=== PATIENT | female | born 1990 | race African-American/Black ===

== ENCOUNTER 2017-11-20 19:00 | Emergency (ER) | payer MEDICAID ==
[~2017-11-20] VITALS: Ht 160 cm; Wt 54.4 kg
[~2017-11-20 19:00] MED LIST: IBUPROFEN600 MG ORAL; NORCO 5-325 TA1 EACH ORAL
--- NOTE | 2017-11-20 19:49 | Emergency Room Report ---
History of Present Illness General Chief Complaint: To Be Triaged Present Illness HPI 27 yo female patient presents to ER complaining of "think I was bit by something ". Reports occurred while on way to ER for son; son in ER for different symptoms. Reports "numb/itching feeling" and pain in right hand and forearm. Reports swelling of right hand. Reports symptoms have decreased since onset. Denies loss of sensation. Reports right hand dominate. Denies fever, nausea, vomiting, chest pain, SOB. Allergies: Coded Allergies: No Known Allergies (Unverified , 12/17/14) Patient History Past Medical History: see triage record Reviewed Nursing Documentation: PMH: Agreed; PSxH: Agreed Review of Systems All Other Systems: negative except mentioned in HPI Physical Exam Vital Signs Date Time Temp Pulse Resp B/P (MAP) Pulse Ox O2 Delivery O2 Flow Rate FiO2 11/20/17 20:06 98.0 70 18 101/67 99 Room Air 98.1 Sp02 EP Interpretation: reviewed, normal General Appearance: well appearing, no apparent distress, alert, GCS 15, non- toxic Head: normocephalic, atraumatic Eyes: bilateral eye normal inspection, bilateral eye PERRL Respiratory: lungs clear, normal breath sounds, no rhonchi, no respiratory distress, no accessory muscle use, no wheezing, speaking full sentences Cardiovascular #1: regular rate, rhythm, no edema Musculoskeletal: back normal, digits/nails normal, gait/station normal, normal range of motion, non-tender, other - NVI Neurologic: alert, oriented x3, responsive, motor strength/tone normal, sensory intact Psychiatric: mood/affect normal Skin: no rash Lymphatic: no adenopathy Medical Decision Making PA Attestation Dr. Farris is my supervising Physician whom patient management has been discussed with. Diagnostic Impression: Primary Impression: Bug bite ER Course Pt. presents to the ED c/o bug bite. Ddx considered but are not limited to atopic dermatitis, bug bite, urticaria, allergic reaction. Vital signs: are WNL, pt. is afebrile ER COURSE: PE benign, no bug bite visualized, no erythema, no edema, NVI. Will treat symptomatically in ER. Provided with Dexamethasone and Benadryl in ER. Stable for discharge and outpatient treatment. F/u with primary care provider. DISCHARGE: -Rx given for Benadryl for pruritus. SE may cause drowsiness. -Rx given for Tylenol for pain -Patient instructed to apply warm compresses to affected area. At this time pt. is stable for d/c to home. Patient resting comfortably, in no acute distress, nontoxic appearing. Care plan and follow up instructions have been discussed with the patient prior to discharge. Patient provided with printed patient care instructions, and any necessary prescriptions. Patient instructed to follow-up with primary care provider in 3 - 5 days. Patient questions asked and answered. Patient reports understanding and agreement to treatment plan. ER precautions given. Patient instructed to return to ER immediately for any new or worsening of symptoms including but not limited to increasing SOB, persistent fever. Disposition: HOME, SELF-CARE Condition: Stable Scripts Diphenhydramine Hcl* (BENADRYL*) 25 Mg Capsule 25 MG ORAL Q6H PRN for Itching, #30 CAP Prov: Edward Han 11/20/17 Acetaminophen* (TYLENOL EXTRA STRENGTH*) 500 Mg Tablet 500 MG ORAL Q8H PRN for Prn Headache/Temp > 101, #30 TAB 0 Refills Prov: Edward Han 11/20/17 Patient Instructions: Insect Bite, [id number] Additional Instructions: Followup with primary care provider in 3 -5 days. Take medications as directed. Apply warm compresses to affected areas. Patient questions asked and answered. ER precautions given, patient instructed to return to ER immediately for any new or worsening of symptoms. Edward Han Nov 20, 2017 19:49
[2017-11-20] MEDS ORDERED: TYLENOL EXTRA500 MG ORAL (20:07)
[2017-11-20] MEDS ORDERED: BENADRYL25 MG ORAL (20:07)
[2017-11-20] MEDS: Dexamethasone 4mg/ml vial IM ONE (20:22)
[2017-11-20 20:28] VITALS: BP 101/67
== END 2017-11-20 20:25 | disposition home or self-care (01) ==
LOC: EMR 19:50
DX: S61.451A Open bite of right hand, initial encounter (principal); S51.851A Open bite of right forearm, initial encounter; W57.XXXA Bitten or stung by nonvenomous insect and other nonvenomous arthropods, initial encounter; Y92.9 Unspecified place or not applicable
CPT/HCPCS: 96372; 99284; J1100

== ENCOUNTER 2018-02-22 09:59 | Emergency (ER) | payer MEDICAID ==
[~2018-02-22] VITALS: Ht 160 cm; Wt 49.9 kg
[~2018-02-22 09:59] MED LIST changes: +BENADRYL25 MG ORAL; +TYLENOL EXTRA500 MG ORAL
[2018-02-22] MEDS ORDERED: CEPHALEXIN500 MG ORAL (10:54)
[2018-02-22 11:05] VITALS: BP 101/63
--- NOTE | 2018-02-22 15:00 | Emergency Room Report ---
History of Present Illness General Chief Complaint: Lower Extremity Injury Source: Patient Present Illness HPI 27-year-old female presents ED complaining of puncture wound. States that she accidentally poked herself with metal object at home 2 days ago with her right second finger. Notes pain and swelling since. Denies any fevers or chills. Denies any discharge. Pain is throbbing, 5 out of 10, nonradiating. Tetanus is up-to-date. No other aggravating relieving factors. Denies any other associated symptoms Allergies: Coded Allergies: No Known Allergies (Unverified , 12/17/14) Patient History Past Medical History: none Past Surgical History: none Pertinent Family History: none Social History: Denies: smoking, alcohol use, drug use Last Menstrual Period: 01/23/18 Now: No : 1 Para: 1 Immunizations: UTD Reviewed Nursing Documentation: PMH: Agreed; PSxH: Agreed Nursing Documentation-PMH Past Medical History: No Stated History Review of Systems All Other Systems: negative except mentioned in HPI Physical Exam Vital Signs Date Time Temp Pulse Resp B/P (MAP) Pulse Ox O2 Delivery O2 Flow Rate FiO2 02/22/18 10:20 98.3 73 16 101/63 98 Room Air 98.2 Sp02 EP Interpretation: reviewed, normal General Appearance: no apparent distress, alert, GCS 15, non-toxic Head: normocephalic Eyes: bilateral eye normal inspection, bilateral eye PERRL ENT: normal ENT inspection Neck: normal inspection Respiratory: normal inspection Cardiovascular #1: normal inspection Gastrointestinal: normal inspection Rectal: deferred Genitourinary: no CVA tenderness Musculoskeletal: normal range of motion, tender - R index finger. mild swelling distal aspect. no fluctuance or discharge. Neurologic: alert, oriented x3, responsive, motor strength/tone normal, sensory intact, speech normal Psychiatric: normal inspection Skin: normal inspection Lymphatic: normal inspection Medical Decision Making Diagnostic Impression: Primary Impression: Puncture wound ER Course Hospital Course 27-year-old female presents to ED with pain/swelling to R index finger Differential diagnoses include: Cellulitis, dermatitis, insect bite, abscess Clinical course Patient placed on stretcher. After initial history, physical exam reveals a young female in no acute distress. On exam there is some swelling to the distal aspect of the right index finger. No fluctuance or discharge. No erythema or induration. Full range of motion noted. I have no suspicion for paronychia or felon. Tetanus is up-to-date. We will treat with antibiotics and warm compresses. Recommend close follow-up with PMD Diagnosis - puncture wound stable and discharged to home with prescription for keflex. Instructed to followup with PMD. Instructed return to ED if symptoms recur or worsen Last Vital Signs Date Time Temp Pulse Resp B/P (MAP) Pulse Ox O2 Delivery O2 Flow Rate FiO2 02/22/18 11:05 98.3 16 101/63 98 Room Air 98.2 02/22/18 10:20 73 Status: improved Disposition: HOME, SELF-CARE Condition: Stable Scripts Cephalexin* (KEFLEX*) 500 Mg Capsule 500 MG ORAL EVERY 6 HOURS for 7 Days, CAP Prov: Israel Hope MD 02/22/18 Referrals: NOT CHOSEN [facility]/,REFERRING (PCP) Patient Instructions: Puncture Wound Israel Hope MD Feb 22, 2018 15:00
== END 2018-02-22 11:06 | disposition home or self-care (01) ==
LOC: EMR 11:00
DX: S61.230A Puncture wound without foreign body of right index finger without damage to nail, initial encounter (principal); W22.8XXA Striking against or struck by other objects, initial encounter; Y92.009 Unspecified place in unspecified non-institutional (private) residence as the place of occurrence of the external cause
CPT/HCPCS: 99283

== ENCOUNTER 2018-11-25 14:09 | Emergency (ER) | payer MEDICAID ==
[~2018-11-25] VITALS: Ht 160 cm; Wt 47.6 kg
[~2018-11-25 14:09] MED LIST changes: +CEPHALEXIN500 MG ORAL
[2018-11-25] MEDS ORDERED: NKM (14:18)
--- NOTE | 2018-11-25 15:27 | Emergency Room Report ---
History of Present Illness General Chief Complaint: Lower Extremity Injury Source: Patient Present Illness HPI 28 -year-old female presents to the emergency department complaining of acute onset of 10/10 in severity right posterior calf pain with swelling 3 days. Patient reports taking Tylenol once with no relief. Patient denies appreciable trauma or fall she denies recent travel, control use, smoking history or use of estrogen replacement and any kind. She denies recent surgery or immobilization. Denies numbness tingling or loss of sensation or gross motor movements of the extremities, incontinence of bowel or bladder. Denies CP, Palpitations, LOC, AMS, dizziness, Changes in Vision, weakness or a sudden severe headache. Allergies: Coded Allergies: No Known Allergies (Unverified , 12/17/14) Patient History Past Medical History: see triage record Past Surgical History: none Pertinent Family History: none Last Menstrual Period: 11/21/18 Now: No Reviewed Nursing Documentation: PMH: Agreed; PSxH: Agreed Nursing Documentation-PMH Past Medical History: No Stated History Review of Systems All Other Systems: negative except mentioned in HPI Physical Exam Vital Signs Date Time Temp Pulse Resp B/P (MAP) Pulse Ox O2 Delivery O2 Flow Rate FiO2 11/25/18 14:17 97.9 76 18 109/68 99 Room Air Sp02 EP Interpretation: reviewed, normal General Appearance: no apparent distress, alert, GCS 15, non-toxic, mild distress Head: normocephalic, atraumatic Eyes: bilateral eye normal inspection, bilateral eye PERRL ENT: hearing grossly normal, normal voice Neck: full range of motion Respiratory: lungs clear, normal breath sounds, speaking full sentences Cardiovascular #1: regular rate, rhythm, normal capillary refill Cardiovascular #2: 2+ dorsalis pedis (R), 2+ dorsalis pedis (L) Musculoskeletal: back normal, gait/station normal, normal range of motion, swelling - right calf. , tender - Calf TTP, negative calf squeeze test, positive sandy's Neurologic: alert, oriented x3, responsive, motor strength/tone normal, sensory intact, speech normal, grossly normal Psychiatric: judgement/insight normal Skin: normal color, no rash, warm/dry, well hydrated Medical Decision Making PA Attestation Dr. Farris is my supervising Physician whom patient management has been discussed with. Diagnostic Impression: Primary Impression: Myalgia Additional Impression: Tendonitis ER Course 28 -year-old female presents to the emergency department complaining of acute onset of right posterior calf pain with swelling 3 days. Patient reports taking Tylenol once with no relief. Patient denies appreciable trauma or fall she denies recent travel, control use, smoking history or use of estrogen replacement and any kind. She denies recent surgery or immobilization. Denies numbness tingling or loss of sensation or gross motor movements of the extremities, incontinence of bowel or bladder. Denies CP, Palpitations, LOC, AMS , dizziness, Changes in Vision, weakness or a sudden severe headache. Ddx considered but are not limited to muscle cramp, tendonitis, Cellulitis, DVT , varicose vein, PAD,Venous insufficiency, SPRAIN/Strain, Fx, D/L Vital signs: are WNL, pt. is afebrile H&PE are most consistent with ORDERS: -Venous Duplex US --- Negative for DVT ED INTERVENTIONS: - Toradol IM -Robaxin PO -I do not identify an emergent condition at this time. With current presentation , pt. is stable for close outpatient follow up and conservative treatment. D/ w pt. to return promptly to ED with worsening or new symptoms.- Pt. verbalizes' understanding and agreement with proposed treatment plan.proposed treatment plan. DISCHARGE: At this time pt. is stable for d/c to home. Will provide printed patient care instructions, and any necessary prescriptions. Care plan and follow up instructions have been discussed with the patient prior to discharge. CT/MRI/US Diagnostic Results CT/MRI/US Diagnostic Results : Imaging Test Ordered: Right LE - unilateral US Impression Negative for DVT Last Vital Signs Date Time Temp Pulse Resp B/P (MAP) Pulse Ox O2 Delivery O2 Flow Rate FiO2 11/25/18 14:17 97.9 76 18 109/68 99 Room Air Status: improved Disposition: HOME, SELF-CARE Condition: Stable Scripts Ibuprofen* (MOTRIN*) 600 Mg Tablet 600 MG ORAL THREE TIMES A DAY, #30 TAB 0 Refills Prov: Mirela Salmon 11/25/18 Methocarbamol* (ROBAXIN-750*) 750 Mg Tablet 750 MG PO QID for 7 Days, #28 TAB 0 Refills Prov: Mirela Salmon 11/25/18 Referrals: [facility],REFERRING (PCP) Patient Instructions: Muscle Cramps and Spasms, [id number] Additional Instructions: Take medications as directed. Drink plenty of fluids to stay Hydrated! increase potassium intake Follow up with a Primary Care Provider in 3-5 days, even if your symptoms have resolved. --Please review list of primary care clinics, if you do not already have a primary care provider Return sooner to ED if new symptoms occur, or current symptoms become worse. Do not drink alcohol, drive, or operate heavy machinery while taking Robaxin as this may cause drowsiness. - Please note that this Emergency Department Report was dictated using [id number] polisher technology software, occasionally this can lead to erroneous entry secondary to interpretation by the dictation equipment. Mirela Salmon Nov 25, 2018 15:27
[2018-11-25] MEDS ORDERED: Ketorolac 30mg Inj IM ONE (15:45)
[2018-11-25] MEDS ORDERED: Methocarbamol 750mg tab ORAL ONE (15:45)
[2018-11-25] MEDS ORDERED: IBUPROFEN600 MG ORAL (16:00)
[2018-11-25] MEDS ORDERED: ROBAXIN-750750 MG PO (16:00)
[2018-11-25 16:08] VITALS: BP 106/72
--- NOTE | 2018-11-25 18:11 | Diagnostic Imaging Report ---
Indication: Right leg pain Technique: Grayscale and duplex images of the right lower extremity veins Comparison: none Findings: On the right, grayscale duplex images demonstrate no evidence of intraluminal thrombus. Normal phasic Doppler waveforms, demonstrating normal augmentation response and no evidence of valvular insufficiency. Normal compressibility of all deep veins studied. Impression: Negative for right lower extremity deep venous thrombosis
== END 2018-11-25 16:11 | disposition home or self-care (01) ==
LOC: EMR 14:50
DX: M79.661 Pain in right lower leg (principal); M77.9 Enthesopathy, unspecified
CPT/HCPCS: 93971; 96372; 99284; J1885